=== PATIENT | female | born 1960 | race Caucasian/White ===

== ENCOUNTER 2016-05-12 11:20 | Outpatient (CLI) | payer BC ==
[2016-05-12 12:45] LABS: #Eosinphils 0.1 thou/uL (0.0-0.7); #Lymphocytes 1.5 thou/uL (1.20-3.40); #Monocytes 0.3 thou/uL (0.11-0.59); #Neutrophils 2.5 thou/uL (1.40-6.50); %Basophils 0.6 % (0.0-1.0); %Eosinophils 1.5 % (0.0-10.0); %Monocytes 7.8 % (0.0-10.0); Hematocrit 38.1 % (36.0-47.0); Mean Platelet Volume 6.4 fL (7.4-10.4); White Blood Cell (WBC) Count 4.4 thou/uL (4.8-10.8)
[2016-05-12 13:13] LABS: ALT (SGPT) 17 U/L (0-55); AST (SGOT) 27 U/L (5-34); Alkaline Phosphatase 92 U/L (40-150); Anion Gap 13 mmol/L (10-20); BUN (Urea Nitrogen) 14 mg/dL (9.8-20.1); Bilirubin, Total 0.9 mg/dL (0.2-1.2); Calc. Creatinine Clearance 0 mL/min (70-130); Calcium 9.7 mg/dL (7.8-10.44); Carbon Dioxide 29 mmol/L (22-29); Chloride 107 mmol/L (98-107); Estimated GFR-MDRD 69; Globulin 3.1 g/dL (2.4-3.5); LDL Cholesterol, Calculated 84 mg/dL; Protein, Total 7.2 g/dL (6.0-8.3)
== END 2016-05-12 11:21 ==
LOC: HPCALD 11:20
PROVIDERS: ATTEND Family Medicine
DX: E78.5 Hyperlipidemia, unspecified (principal); E03.9 Hypothyroidism, unspecified; I10 Essential (primary) hypertension
CPT/HCPCS: 36415; 80053; 80061; 84443; 85025

== ENCOUNTER 2016-06-11 13:13 | Outpatient (CLI) | payer BC | END 2016-06-11 13:14 | disposition home or self-care (01) | LOC: HPCALD 13:13 | PROVIDERS: ATTEND Family Medicine | DX: Z01.419 Encounter for gynecological examination (general) (routine) without abnormal findings (principal) | CPT/HCPCS: 88142; G0123 ==

== ENCOUNTER 2020-10-25 14:35 | Outpatient (CLI) | payer BC | END 2020-10-25 14:36 | disposition home or self-care (01) | LOC: BURRAD 14:35 | PROVIDERS: ATTEND Family Medicine | DX: S60.011A Contusion of right thumb without damage to nail, initial encounter (principal) ==